=== PATIENT | female | born 1995 | race Two or more races ===

== ENCOUNTER 2017-09-17 01:04 | Observation (INO) | payer OTHER ==
--- NOTE | 2017-09-17 02:05 | DR.GENAD ---
HPI - PCP Primary Care Physician: DR. GALINDO - Complaint/Symptoms Chief Complaint Doctors Comments: This a G1Po female who presented with complaint of her water broke today. She is due 03/01/18. She denies abdominal pain. No bloody show. She is four months . She denies fever. Chief Complaint:: PATIENT IS 16 WEEKS . PATIENT HAD TO WORK TODAY FROM 9AM-530PM BUT DID NOT HAVE TO DO MUCH. PT WENT ATE SUPPER AND LAID DOWN ON COUCH. PT GOT UP AT 1140PM AND LAID DOWN ON THE BED. PT HAD A PAIN IN LOWER ABDOMEN AND THEN HAD A WATERY DISCHARGE FROM VAGINA. PT GOT UP AND THE WATER CONTINUED TO TRICKLE OUT. PAIN WENT AWAY AND HAS NOW CAME BACK IN LEFT SIDE. THERE WAS NO DISCOLORATION IN THE WATER, - Source History Provided: Patient - Mode of Arrival Mode of Arrival: Ambulatory - Timing Onset of Chief Complaint: 09/16/17 PMH - PMH Past Medical History: No Past Surgical History: Yes Surgical History: Appendectomy - Family History History of Family Medical Conditions: Yes Family Medical History: Diabetes Mellitus, Cancer, Hypertension Family Medical History Comment: ASTHMA - Social History Does patient currently use any type of tobacco product: No Have you used tobacco products in the last 12 months: No Type of Tobacco Use: None Does any household member use tobacco: No Alcohol Use: None Do you use any recreational Drugs:: No Lives With: Mom Lives Where: Home - infectious screening In the last 2 months have you had wt loss of >10#?: NO Have you had fever, night sweats or hemotysis?: No Have you traveled outside the country in the last 6 months?: No Isolation: Standard ROS - Review of Systems Constitutional: No Symptoms Reported Eyes: No Symptoms Reported ENTM: No Symptoms Reported Respiratoy: No Symptoms Reported Cardiovascular: No Symptoms Reported Gastrointestinal/Abdominal: No Symptoms Reported Genitourinary: No Symptoms Reported Neurological: No Symptoms Reported Musculoskeletal: No Symptoms Reported Integumentary: No Symptoms Reported Hematologic/Lymphatic: No Symptoms Reported Endocrine: No Symptoms Reported Psychiatric: No Symptoms Reported All Other Systems: Reviewed and Negative PE - Vital Signs Vitals: Temperature 98.5 F Pulse Rate 87 Respiratory Rate 16 Blood Pressure 117/63 O2 Sat by Pulse Oximetry 99 - General Limitations: No Limitations General Appearance: Alert, In No Apparent Distress - Head Head Exam: Normal Inspection, Atraumatic - Eyes Eye exam: Normal Appearance, PERRL, EOMI - ENT ENT Exam: Normal Exam External Ear Exam: Normal External Inspection TM/Canal Exam: Bilateral Normal Nose Exam: Normal Nose Exam Mouth Exam: Normal Inspection Throat Exam: Normal Inspection - Neck Neck Exam: Normal Inspection, Full ROM - Chest Chest Inspection: Normal Inspection - Respiratory Respiratory Exam: Normal Lung Sounds Bilat Respiratory Exam: Bilateral Clear to Auscultation - Cardiovascular Cardiovascular Exam: Regular Rate, Normal Rhythm - Abdominal Exam Abdominal Exam: Normal Inspection Abdominal Tenderness: negative: RUQ, RLQ, LUQ, LLQ, Epigastrium, Suprapubic, Diffuse, Mild, Moderate, Severe, Other - Extremities Extremities Exam: Normal Inspection, Full ROM. negative: Edema, Joint Swelling - Back Back Exam: Normal Inspection - Neurologic Neurological Exam: Alert, Oriented X3, CN II-XII Intact - Psychiatric Psychiatric Exam: Normal Affect - Skin Skin Exam: Warm, Dry, Intact Course - Consultation Called: 05:10 (Dr Galindo agreed to admit for antibiotics) ROR - Labs Reviewed Result Diagrams: 09/17/17 02:25 Laboratory: WBC 9.4 X10^3/uL (3.6-10.0) 09/17/17 02:25 RBC 3.58 X10^6/uL (3.5-5.4) 09/17/17 02:25 Hgb 11.2 g/dL (12.0-16.0) L 09/17/17 02:25 Hct 32.5 % (36.0-47.0) L 09/17/17 02:25 MCV 90.8 fL (80.0-100.0) 09/17/17 02:25 MCH 31.2 pg (27.0-34.0) 09/17/17 02:25 MCHC 34.4 g/dL (33.0-35.0) 09/17/17 02:25 RDW 14.0 % (11.6-16.5) 09/17/17 02:25 Plt Count 210 X10^3/uL (150.0-450.0) 09/17/17 02:25 MPV 9.5 fL (7.4-11.0) 09/17/17 02:25 Neut % 65.3 % (42.0-75.0) 09/17/17 02:25 Lymph % 25.8 % (21.0-51.0) 09/17/17 02:25 [place] % 7.2 % (0.0-13.0) 09/17/17 02:25 Eos % 1.4 % (0.9-2.9) 09/17/17 02:25 Baso % 0.3 % (0.2-1.0) 09/17/17 02:25 Neut # 6.1 x10^3/uL (2.2-4.8) H 09/17/17 02:25 Lymph # 2.4 X10^3/uL (1.3-2.9) 09/17/17 02:25 [place] # 0.7 x10^3/uL (0.3-0.8) 09/17/17 02:25 Eos # 0.1 x10^3/uL (0.0-0.2) 09/17/17 02:25 Baso # 0.0 X10^3/uL (0.0-0.1) 09/17/17 02:25 Absolute Nucleated RBC 0.0 /100WBC 09/17/17 02:25 HCG, Qual Positive >10 mIU/mL 09/17/17 02:25 HCG, Quant 02986 mIU/mL (0-6) H 09/17/17 02:25 Specimen Type Clean catch urine 09/17/17 03:00 Urine Color Yellow (YELLOW) 09/17/17 03:00 Urine Appearance Clear (CLEAR) 09/17/17 03:00 Urine pH 7.0 (5.0 - 8.0) 09/17/17 03:00 Ur Specific [place] 1.020 (1.000-1.030) 09/17/17 03:00 Urine Protein Negative (NEGATIVE) 09/17/17 03:00 Urine Glucose (UA) Negative (NEGATIVE) 09/17/17 03:00 Urine Ketones Negative (NEGATIVE) 09/17/17 03:00 Urine Occult Blood Negative (NEGATIVE) 09/17/17 03:00 Urine Nitrite Negative (NEGATIVE) 09/17/17 03:00 Urine Bilirubin Negative (NEGATIVE) 09/17/17 03:00 Urine Urobilinogen Normal (NORMAL) 09/17/17 03:00 Ur Leukocyte Esterase 1+ (NEGATIVE) 09/17/17 03:00 Urine RBC 0-3 /HPF (NEGATIVE) 09/17/17 03:00 Urine WBC 0-3 /HPF (NEGATIVE) 09/17/17 03:00 Ur Squamous Epith Cells Many /HPF (NEGATIVE) 09/17/17 03:00 Urine Bacteria Trace /HPF (NEGATIVE) 09/17/17 03:00 Urine Trichomonas Few /HPF (NEGATIVE) 09/17/17 03:00 Ur Culture Indicated? No/not indicated 09/17/17 03:00 - XRAY XRAY Interpreted by: Radiologist (Ob ultrasound >14 weeks: A viable single intrauterine is identified with heart tones of 157 beast per minute. A transverse presentaton is observed with an anterior and fundal placenta. Of density within the placenta suspected represent a placental Mary. No definite retroplacental or subchronic hemorrhage. No appreciable amniotic fluid identified on exam. Impression: Abnormal 2nd trimester ultrasound with an estimated gestational age of 16 weeks,1 day. There is almost no amniotic fluid identified consistent with oligohydramnios, suspicion for premature rupture of membranes given lack of definite urinary bladder dilation or hydronephrosis to suggest renal anomaly. Close obstetrical follow up is needed.) - Diagnosis Discharge Problem: Oligohydramnios, first trimester, fetus 1 Premature rupture of membranes Qualifiers: PROM onset of labor timing: unspecified duration between rupture of membranes and onset of labor PROM gestational age: -first trimester Qualified Code( s): O42.911 - premature rupture of membranes, unspecified as to length of time between rupture and onset of labor, first trimester - Discharge Plan Condition: Stable - Follow ups/Referrals Follow ups/Referrals: KARISSA GALINDO [Primary Care Provider] - 3 days - Instructions
[2017-09-17 02:48] LABS: BASOPHILS % (AUTO) 0.3 % (0.2-1.0); EOSINOPHILS # (AUTO) 0.1 x10^3/uL (0.0-0.2); EOSINOPHILS % (AUTO) 1.4 % (0.9-2.9); HEMATOCRIT 32.5 % (36.0-47.0); HEMOGLOBIN 11.2 g/dL (12.0-16.0); LYMPHOCYTES # (AUTO) 2.4 X10^3/uL (1.3-2.9); LYMPHOCYTES % (AUTO) 25.8 % (21.0-51.0); MEAN CORPUSCULAR HEMOGLOBIN 31.2 pg (27.0-34.0); MEAN CORPUSCULAR HGB CONC 34.4 g/dL (33.0-35.0); MEAN CORPUSCULAR VOLUME 90.8 fL (80.0-100.0); MEAN PLATELET VOLUME 9.5 fL (7.4-11.0); MONOCYTES # (AUTO) 0.7 x10^3/uL (0.3-0.8); MONOCYTES % (AUTO) 7.2 % (0.0-13.0); NEUTROPHILS # (AUTO) 6.1 x10^3/uL (2.2-4.8); NEUTROPHILS % (AUTO) 65.3 % (42.0-75.0); PLATELET COUNT 210 X10^3/uL (150.0-450.0); RED BLOOD COUNT 3.58 X10^6/uL (3.5-5.4); WHITE BLOOD COUNT 9.4 X10^3/uL (3.6-10.0)
[2017-09-17 03:02] LABS: SERUM PREGNANCY TEST, QUAL POSITIVE >10 mIU/mL
[2017-09-17 03:17] LABS: BILIRUBIN,URINE NEGATIVE (NEGATIVE); BLOOD/HEMOGLOBIN,URINE NEGATIVE (NEGATIVE); GLUCOSE, URINE NEGATIVE (NEGATIVE); KETONES,URINE NEGATIVE (NEGATIVE); LEUKOCYTE ESTERASE ,URINE 1+ (NEGATIVE); NITRITES,URINE NEGATIVE (NEGATIVE); PROTEIN,URINE NEGATIVE (NEGATIVE); UROBILINOGEN,URINE NORMAL (NORMAL)
[2017-09-17 03:48] LABS: APPEARANCE,URINE CLEAR (CLEAR); BACTERIA,URINE TRACE /HPF (NEGATIVE); COLOR,URINE YELLOW (YELLOW); RBC,URINE 0-3 /HPF (NEGATIVE); SQUAMOUS EPITHELIAL CELL,UR MANY /HPF (NEGATIVE); TRICHOMONAS,URINE FEW /HPF (NEGATIVE)
--- NOTE | 2017-09-17 04:51 | US ---
OB ultrasound greater than 14 weeks Indication: Loss or fluid Comparison: None available Technique: Multiple grayscale and color flow Doppler images of the pelvis were obtained with focused evaluation of the fetus. Findings: A viable single intrauterine is identified with heart tones of 157 beats per minute. A transverse presentation is observed with an anterior and fundal placenta. Of density within the [place] suspected represent a placental Mary. No definite retroplacental or subchronic hemorrhage. No appreciable amniotic fluid identified on exam. Value Estimated Gestational Age BPD 3.47 cm 16 weeks, 5 days HC 11.49 cm 15 weeks, 4 days AC 9.72 cm 15 weeks, 6 days FL 2.09 cm 16 weeks, 2 days. Estimated gestational age is 16 weeks, 1 day. Estimated weight is 142 g. IMPRESSION: Abnormal 2nd trimester ultrasound with an estimated gestational age of 16 weeks, 1 day[address] There is almo st no amniotic fluid identified consistent with oligohydramnios, suspicion for premature rupture of m embranes given lack of definite urinary bladder dilation or hydronephrosis to suggest renal anomaly. Close obstetrical follow-up is needed. Reported By:
[2017-09-17] MEDS ORDERED: AMPICILLIN VIAL 1 GM ONE (05:44)
[2017-09-17] MEDS ORDERED: NS 100 ML IV 100 ML IV ONE (05:44)
[2017-09-17] MEDS ORDERED: NS 250 ML IV 250 ML IV PRN (05:48)
[2017-09-17] MEDS: NS IV SCH ×4 (05:53→20:25)
[2017-09-17] MEDS: AMPICILLIN IV SCH ×4 (05:53→20:25)
[2017-09-17] MEDS: SPIKE MINIBAG IV SCH ×4 (05:53→20:25)
[2017-09-17] MEDS: D5 1/2 NS 1000 ML 1,000 ML IV SCH ×4 (09:41→23:45)
[2017-09-17] MEDS ORDERED: TYLENOL 325 MG TAB PO ONE (14:32)
[2017-09-18] MEDS: SPIKE MINIBAG IV SCH ×4 (03:45→20:27)
[2017-09-18] MEDS: AMPICILLIN IV SCH ×4 (03:45→20:27)
[2017-09-18] MEDS: D5 1/2 NS 1000 ML 1,000 ML IV SCH ×3 (03:45→20:27)
[2017-09-18] MEDS: NS IV SCH ×4 (03:45→20:27)
[2017-09-18 06:49] LABS: BASOPHILS % (AUTO) 0.3 % (0.2-1.0); EOSINOPHILS # (AUTO) 0.1 x10^3/uL (0.0-0.2); EOSINOPHILS % (AUTO) 0.8 % (0.9-2.9); HEMATOCRIT 31.9 % (36.0-47.0); LYMPHOCYTES # (AUTO) 1.5 X10^3/uL (1.3-2.9); LYMPHOCYTES % (AUTO) 14.8 % (21.0-51.0); MEAN CORPUSCULAR HEMOGLOBIN 31.9 pg (27.0-34.0); MEAN CORPUSCULAR HGB CONC 34.4 g/dL (33.0-35.0); MEAN CORPUSCULAR VOLUME 92.7 fL (80.0-100.0); MEAN PLATELET VOLUME 9.9 fL (7.4-11.0); MONOCYTES # (AUTO) 0.7 x10^3/uL (0.3-0.8); MONOCYTES % (AUTO) 7.1 % (0.0-13.0); NEUTROPHILS # (AUTO) 7.8 x10^3/uL (2.2-4.8); PLATELET COUNT 166 X10^3/uL (150.0-450.0); RED BLOOD COUNT 3.44 X10^6/uL (3.5-5.4); RED CELL DISTRIBUTION WIDTH 14.1 % (11.6-16.5); WHITE BLOOD COUNT 10.1 X10^3/uL (3.6-10.0)
[2017-09-18 08:46] VITALS: BMI 39.9
[2017-09-18] MEDS: PRENATAL PLUS PO SCH (10:06)
[2017-09-19] MEDS: D5 1/2 NS 1000 ML 1,000 ML IV SCH (03:07)
[2017-09-19] MEDS: SPIKE MINIBAG IV SCH ×2 (03:07→08:13)
[2017-09-19] MEDS: NS IV SCH ×2 (03:07→08:13)
[2017-09-19] MEDS: AMPICILLIN IV SCH ×2 (03:07→08:13)
[2017-09-19 05:43] LABS: BASOPHILS # (AUTO) 0.1 X10^3/uL (0.0-0.1); EOSINOPHILS # (AUTO) 0.2 x10^3/uL (0.0-0.2); EOSINOPHILS % (AUTO) 1.6 % (0.9-2.9); HEMATOCRIT 32.1 % (36.0-47.0); HEMOGLOBIN 10.9 g/dL (12.0-16.0); LYMPHOCYTES # (AUTO) 1.9 X10^3/uL (1.3-2.9); LYMPHOCYTES % (AUTO) 18.7 % (21.0-51.0); MEAN CORPUSCULAR HEMOGLOBIN 31.2 pg (27.0-34.0); MEAN CORPUSCULAR VOLUME 91.6 fL (80.0-100.0); MEAN PLATELET VOLUME 10.1 fL (7.4-11.0); MONOCYTES # (AUTO) 0.8 x10^3/uL (0.3-0.8); MONOCYTES % (AUTO) 7.5 % (0.0-13.0); NEUTROPHILS # (AUTO) 7.4 x10^3/uL (2.2-4.8); NEUTROPHILS % (AUTO) 71.2 % (42.0-75.0); PLATELET COUNT 162 X10^3/uL (150.0-450.0); RED BLOOD COUNT 3.51 X10^6/uL (3.5-5.4); WHITE BLOOD COUNT 10.4 X10^3/uL (3.6-10.0)
[2017-09-19] MEDS: PRENATAL PLUS PO SCH (08:11)
[2017-09-19 09:50] VITALS: BP 128/56
== END 2017-09-19 11:20 | disposition home or self-care (01) ==
LOC: ER 01:04 → MED/SURG 05:20
PROVIDERS: ADMIT Specialist; ATTEND Specialist
DX: O42.911 Preterm premature rupture of membranes, unspecified as to length of time between rupture and onset of labor, first trimester (principal); O41.0 Oligohydramnios; Z3A.16 16 weeks gestation of pregnancy
CPT/HCPCS: 36415; 76815; 81001; 84702; 84703; 85025; 96365; 96374; 99282; 99284; A4222; S0197; G0378; J0290; J7042

== ENCOUNTER 2017-09-23 05:22 | Inpatient (IN) | payer OTHER ==
[2017-09-23 05:34] VITALS: BMI 41.1
[2017-09-23] MEDS ORDERED: D5 1/2 NS 1000 ML 1,000 ML IV ONE (06:02)
[2017-09-23] MEDS ORDERED: D5 1/2 NS 1L W PITOCIN 20 UNITS/L 20 UNITS/1,000 ML BAG IV ONE ×2 (06:02→08:10)
[2017-09-23] MEDS ORDERED: PITOCIN ONE (06:02)
[2017-09-23] MEDS ORDERED: PITOCIN IVP ONE (06:07)
[2017-09-23] MEDS ORDERED: NUBAIN INJ 200 MG VIAL MULTIDOSE IVP PRN (06:07)
[2017-09-23 06:39] LABS: BASOPHILS # (AUTO) 0.1 X10^3/uL (0.0-0.1); BASOPHILS % (AUTO) 0.5 % (0.2-1.0); EOSINOPHILS # (AUTO) 0.3 x10^3/uL (0.0-0.2); EOSINOPHILS % (AUTO) 2.4 % (0.9-2.9); HEMATOCRIT 34.7 % (36.0-47.0); LYMPHOCYTES # (AUTO) 1.7 X10^3/uL (1.3-2.9); LYMPHOCYTES % (AUTO) 12.9 % (21.0-51.0); MEAN CORPUSCULAR HEMOGLOBIN 31.1 pg (27.0-34.0); MEAN CORPUSCULAR HGB CONC 34.6 g/dL (33.0-35.0); MONOCYTES # (AUTO) 0.8 x10^3/uL (0.3-0.8); MONOCYTES % (AUTO) 5.8 % (0.0-13.0); NEUTROPHILS # (AUTO) 10.2 x10^3/uL (2.2-4.8); NEUTROPHILS % (AUTO) 78.4 % (42.0-75.0); PLATELET COUNT 235 X10^3/uL (150.0-450.0); RED BLOOD COUNT 3.86 X10^6/uL (3.5-5.4); RED CELL DISTRIBUTION WIDTH 13.7 % (11.6-16.5)
[2017-09-23 06:47] LABS: BLOOD UREA NITROGEN 7 mg/dL (7-18); CALCIUM 9.2 mg/dL (8.5-10.1); CARBON DIOXIDE 25.2 mmol/L (21-32); CHLORIDE 104 mmol/L (98-107); CREATININE 0.58 mg/dL (0.55-1.02); SODIUM 137 mmol/L (136-145); eGFR BLACK RACES > 60 (>60); eGFR NON BLACK RACES > 60 (>60)
[2017-09-23] MEDS ORDERED: NUBAIN INJ 10 ONE (06:57)
[2017-09-23] MEDS ORDERED: D5 1/2 NS 1000 ML 1,000 ML IV SCH (07:00)
[2017-09-23] MEDS ORDERED: ANCEF 1 GM IV PREMIX* 1 GM/50 ML BAG IV ONE ×2 (07:07→07:11)
[2017-09-23] MEDS ORDERED: FENTANYL INJ 100 mcg ONE (07:30)
[2017-09-23] MEDS ORDERED: NS 1000 ML 1,000 ML ONE (07:46)
[2017-09-23] MEDS ORDERED: NS IRRIGATION 1000 ML 1,000 ML IR ONE (07:49)
[2017-09-23] MEDS ORDERED: MOTRIN TAB 800 MG PO PRN ×2 (08:13→08:32)
[2017-09-23] MEDS ORDERED: PHENERGAN INJ 25 MG IV PRN ×2 (08:13→08:32)
[2017-09-23] MEDS ORDERED: BENADRYL INJ 50 MG VIAL IVP PRN (08:17)
[2017-09-23] MEDS ORDERED: REGLAN INJ 10 MG VIAL IVP PRN (08:17)
[2017-09-23] MEDS ORDERED: DILAUDID INJ IVP PRN (08:17)
[2017-09-23] MEDS ORDERED: PHENERGAN INJ 25 MG IVP PRN (08:17)
[2017-09-23] MEDS ORDERED: ZOFRAN INJ 4 MG VIAL IVP PRN (08:17)
[2017-09-23] MEDS ORDERED: MILK OF MAGNESIA PO PRN (08:32)
[2017-09-23] MEDS ORDERED: PERCOCET TAB 5/325 MG PO PRN (08:32)
[2017-09-23] MEDS ORDERED: DERMOPLAST SPRAY TOP PRN (08:32)
[2017-09-23] MEDS ORDERED: AMBIEN PO PRN (08:32)
[2017-09-23] MEDS ORDERED: ADACEL TDaP IM ONE (08:32)
[2017-09-23] MEDS ORDERED: D5 1/2 NS 1000 ML 1,000 ML with PITOCIN 20 UNITS IV SCH ×2 (09:00)
[2017-09-23] MEDS: PRENATAL PLUS PO SCH (09:27)
[2017-09-23] MEDS: FERROUS GLUCONATE PO SCH ×2 (09:27→17:57)
[2017-09-23] MEDS: ZANTAC PO SCH ×2 (09:27→20:38)
[2017-09-23] MEDS: COLACE CAP 100 MG PO SCH ×2 (09:30→20:38)
[2017-09-23] MEDS ORDERED: SUPRANE IN ONE (09:39)
[2017-09-23] MEDS ORDERED: ZOFRAN INJ 4 MG VIAL ONE (09:39)
[2017-09-23] MEDS ORDERED: DIPRIVAN VIAL ONE (09:39)
[2017-09-23] MEDS ORDERED: QUELICIN (OR ANECTINE) ONE (09:39)
[2017-09-23] MEDS ORDERED: VERSED ONE (09:39)
[2017-09-23] MEDS ORDERED: LTA KIT LIDOCAINE 4% ONE (09:39)
[2017-09-23] MEDS: D5 1/2 NS 1000 ML 1,000 ML with PITOCIN 20 UNITS IV SCH ×4 (11:34→17:42)
[2017-09-24 06:17] LABS: HEMATOCRIT 28.4 % (36.0-47.0); HEMOGLOBIN 9.8 g/dL (12.0-16.0)
[2017-09-24] MEDS: ZANTAC PO SCH (08:41)
[2017-09-24] MEDS: PRENATAL PLUS PO SCH (08:41)
[2017-09-24] MEDS: FERROUS GLUCONATE PO SCH (08:41)
[2017-09-24] MEDS ORDERED: DEPO-PROVERA CONTRACEPTIVE INJ IM ONE (08:53)
[2017-09-24 11:06] VITALS: BP 112/53
== END 2017-09-24 11:46 | disposition home or self-care (01) | DRG 770 ==
LOC: ER 05:22 → LD 06:00 → MED/SURG 08:33
PROVIDERS: ADMIT Specialist; ATTEND Specialist
PROC: 3E0234Z Introduction of Serum, Toxoid and Vaccine into Muscle, Percutaneous Approach (ICD-10-PCS; 2017-09-23)
PROC: 10D17Z9 Manual Extraction of Products of Conception, Retained, Via Natural or Artificial Opening (ICD-10-PCS; principal; 2017-09-23 07:45)
DX: O03.4 Incomplete spontaneous abortion without complication (principal); Z37.1 Single stillbirth; O42.112 Preterm premature rupture of membranes, onset of labor more than 24 hours following rupture, second trimester; Z3A.17 17 weeks gestation of pregnancy
CPT/HCPCS: 36415; 59409; 80048; 85014; 85018; 85025; 86592; 86850; 86900; 86901; 96365; 99284; A4222; S0197; J0330; J0690; J1050; J2250; J2300; J2405; J2590; J3010; J3490; J7042